=== PATIENT | female | born 1950 | race Caucasian/White ===

== ENCOUNTER 2020-09-09 17:32 | Emergency (ER) | payer MEDICARE, SELFPAY ==
[2020-09-09 17:40] VITALS: PULSE 107; RESP 16; TEMP 37.1; O2SAT 99
--- NOTE | 2020-09-09 18:59 | PC.NURSE ---
Report given to KIERA Cool.
[2020-09-09 19:34] LABS: Basophils Absolute Auto 0.1 K/mm3 (0.0-0.1); Basophils Percent Auto 0.4 % (0.2-1.2); Eosinophils Absolute Auto 0.2 K/mm3 (0-0.3); Eosinophils Percent Auto 1.3 % (0-4.4); Hemoglobin 14.3 g/dL (12.0-15.0); Immature Granulocyte Absolute 0.02 K/mm3 (0.00-0.031); Immature Granulocyte Percent A 0.2 % (0-0.5); Lymphocytes Absolute Auto 4.42 K/mm3 (0.9-3.2); Lymphocytes Percent Auto 38.9 % (18.3-44.2); Mean Corpuscular HGB Conc 33.3 g/dl (32-36); Mean Corpuscular Hemoglobin 30.3 pg (26-34); Mean Corpuscular Volume 91.1 fl (80-100); Mean Platelet Volume 10.7 fl (7.4-10.4); Monocytes Percent Auto 8.5 % (2.6-8.5); Neutrophils Absolute Auto 5.7 K/mm3 (1.3-6.7); Neutrophils Percent Auto 50.7 % (45.5-73.1); Platelet Count Result 268 k/mm3 (150-375); Red Blood Count 4.72 M/mm3 (4.2-5.4); Red Cell Distribution Width 14.6 % (11.5-14.5); White Blood Count 11.4 K/mm3 (4.5-10.0)
[2020-09-09 19:45] LABS: Anion Gap 8 mmol/L (8-16); Blood Urea Nitrogen 13 mg/dL (7-17); Calcium 9.1 mg/dL (8.4-10.2); Carbon Dioxide 26 mmol/L (22-30); Chloride 108 mmol/L (98-107); Estimated Glomerular Filt Rate > 60; Glucose 97 mg/dL (65-105); Potassium 3.7 mmol/L (3.4-5.0); Sodium 142 mmol/L (137-145)
--- NOTE | 2020-09-09 19:51 | ED.GENADULT ---
HPI - General Adult General Chief complaint: Skin/Abscess/Foreign Body Stated complaint: rash on legs Time Seen by Provider: 09/09/20 17:54 Source: patient, family and RN notes reviewed Mode of arrival: ambulatory Limitations: no limitations History of Present Illness HPI narrative: Patient 70-year-old female who presents to emergency department for evaluation of rash to the bilateral lower extremities noticed today patient denies similar occurrence in the past or any exposures or recent illness to explain the rash she denies any pain patient notes red rash to the anterior aspects of the bilateral lower extremities just above the knees and down to the shins that is splotchy and in patches patient has not taken anything for her symptoms she notes she was sitting out on the porch yesterday but has no other good reason for the rash Related Data Allergies Allergy/AdvReac Type Severity Reaction Status Date / Time No Known Allergies Allergy Unknown Verified 09/09/20 17:38 Review of Systems Review of Systems: All systems reviewed & are unremarkable except as noted in HPI and below PMFSH Past Medical History Medical History Acute depression Hypercholesterolemia Surgical History Surgical History History of eye surgery Tubal ligation status Family History Family History Father Cancer Acute myocardial infarction Mother Heart disease Acute myocardial infarction Social History Social History Smoking packs per day: 1 Smoking cigarettes per day: 20.0 Years smoked: 50 Smoking pack-years: 50.00 Smoking status: Current every day smoker Tobacco type: cigarettes Second hand tobacco smoke exposure: No Alcohol intake: current Substance use: never Substance use type: does not use Additional living arrangements comments: Patient states her cousin lives with her. Exam Narrative: Exam Narrative: GENERAL: Well-appearing, well-nourished, and in no acute distress. HEAD: Normocephalic, atraumatic. EYES: PERRLA and EOMI. ENT: Nares clear, no rhinorrhea or epistaxis. Mucous membranes moist. CHEST: Clear to auscultation. No respiratory distress. No wheezes rales or rhonchi HEART: Regular rate and rhythm. No murmur heard. Normal peripheral pulses. EXTREMITIES: Normal range of motion. No edema. SKIN: Warm, dry, patient with petechial rash that is nonblanching to the bilateral anterior thighs just above the knees with some splotchy areas of the shins similar rash on the bilateral lower extremities NEURO: No focal deficits. Alert and oriented x3. Neurovascularly intact. Capillary refill less than 2 seconds PSYCH: Normal mood and affect. Course Course Emergency Course: Patient presented with petechial rash to the lower extremities unclear etiology no high risk changes in the blood work patient will be discharged with outpatient follow-up agreeing to follow with primary care given reasons to return ABCs and vital signs intact and stable afebrile nontoxic-appearing no distress Vital Signs Vital signs: Vital Signs Temperature 98.7 F 09/09/20 17:40 Pulse Rate 107 H 09/09/20 17:40 Respiratory Rate 16 09/09/20 17:40 Pulse Oximetry 99 09/09/20 17:40 Temperature 98.7 F 09/09/20 17:40 Pulse Rate 107 H 09/09/20 17:40 Respiratory Rate 16 09/09/20 17:40 Pulse Oximetry 99 09/09/20 17:40 Medical Decision Making MDM Narrative Medical decision making narrative: Patients injury or pain is consistent with musculoskeletal etiology. No signs of neurological or vascular compromise on exam. Compartments and tisues are soft without signs of compartment syndrome. Pain is felt appropriate for further evaluation on an outpatient basis. Vital Signs Vital Signs: Vital Signs Temperature
== END 2020-09-09 20:05 | disposition home or self-care (01) ==
PROVIDERS: Emergency Medicine Emergency Medical Services; Emergency Provider Family Medicine; PCP Family Medicine
DX: R21 Rash and other nonspecific skin eruption (principal); E78.00 Pure hypercholesterolemia, unspecified; F17.210 Nicotine dependence, cigarettes, uncomplicated
CPT/HCPCS: 36415; 80048; 85025; 99283